=== PATIENT | female | born 1980 ===

== ENCOUNTER 2017-05-24 23:23 | Emergency (ER) | payer MEDICAID ==
[2017-05-25] MEDS ORDERED: Dextrose 5%/0.9% NS 1,000 ML IV ONE (00:25)
[2017-05-25 00:32] VITALS: BMI 26.0
[2017-05-25 01:03] LABS: BASO % 0.3 % (0.0-2.0); EOS % 0.2 % (0.0-4.0); LYMPH # 0.7 K/uL (1.0-4.3); LYMPH % 6.9 % (20.0-40.0); MEAN CELL VOLUME 90.6 fL (81.0-99.0); MEAN CORPUSCULAR HEMOGLOBIN 31.4 pg (27.0-31.0); MEAN CORPUSCULAR HGB CONC 34.6 g/dL (33.0-37.0); MEAN PLATELET VOLUME 8.6 fL (7.2-11.7); MONO # 0.2 K/uL (0.0-0.8); MONO % 2.5 % (0.0-10.0); NEUT # 8.6 K/uL (1.8-7.0); NEUT % 90.1 % (50.0-75.0); PLATELET COUNT 244 K/uL (130-400); RBC 4.14 Mil/uL (3.80-5.20); RED CELL DISTRIBUTION WIDTH 12.5 % (11.5-14.5); WHITE BLOOD COUNT 9.6 K/uL (4.8-10.8)
[2017-05-25 01:06] LABS: SQUAMOUS EPITHIAL 5 /hpf (0-5); URINE BILIRUBIN NEGATIVE (NEGATIVE); URINE BLOOD NEGATIVE (NEGATIVE); URINE CLARITY Clear (Clear); URINE COLOR Yellow (YELLOW); URINE GLUCOSE (UA) NORMAL (Normal); URINE LEUKOCYTE ESTERASE TRACE Leu/uL (Negative); URINE PROTEIN NEGATIVE (NEGATIVE); URINE UROBILINOGEN NORMAL mg/dL (0.2-1.0)
[2017-05-25] MEDS ORDERED: Potassium Ch 20mEq in D5-1/2NS 1,000 ML IV SCH (01:15)
[2017-05-25 01:32] LABS: ALB/GLOB RATIO 1.1 (1.0-2.1)
[2017-05-25 01:36] LABS: ALBUMIN 3.5 g/dL (3.5-5.0); ALT/SGPT 36 U/L (9-52); AMYLASE 86 U/L (30-110); AST/SGOT 25 U/L (14-36); BANDS 8 % (0-2); BLOOD UREA NITROGEN 10 mg/dL (7-17); CALCIUM 7.9 mg/dl (8.6-10.4); GFR AFRICAN-AMERICAN > 60; GFR NON-AFRICAN AMERICAN > 60; LIPASE 45 U/L (23-300); LYMPHOCYTE 6 % (20-40); MONOCYTE 3 % (0-10); NEUTROPHIL 81 % (50-75); PLATELET ESTIMATE NORMAL (NORMAL); REACTIVE LYMPHOCYTES 2 % (0-0); TOTAL CELLS COUNTED 100
--- NOTE | 2017-05-25 08:55 | OBDCSUM ---
Datetime: 05/25/2017 08:54 Discharged to, Provider: Home Follow up at, Provider: 2-3 Follow up in weeks, Provider: clinic Discharge Comment, Provider: [place] [facility] anthony martinez rs po hy f/u pmd n 2-3cdays Discharge Diagnosis Prov Other: gasytroenteritis 24week
--- NOTE | 2017-05-25 08:56 | OBHP ---
Datetime: 05/25/2017 08:53 Admit Comment, IP Provider: pt was seen at bed side. feels good,no vomiting. tolerated reg deit labs n plan dc home zofran deit rs po hy f/u pmd n 2-3cdays [facility] - Baseline A Provider: 130 Contraction Comments Provider: none Vital Signs Provider: Reviewed; Within Normal Limits [facility] Variability Prov Fetus A: Moderate 6-25bpm Datetime: 05/25/2017 00:28 IP Adm Impression: No Active Labor IP Chief Complaint Other: Abdominal pain; nausea, vomiting; perineal bleeding IP Admit Plan: Observation/Evaluation Pelvic Type - PN: Adequate Extremities - PN: Normal Abdomen - PN: Abnormal Back - PN: Normal Breast - PN: Normal Lungs - PN: Normal Heart - PN: Normal Thyroid - PN: Normal Neurologic - PN: Normal HEENT - PN: Normal General - PN: Normal Comments, ACOG Physical Exam: Back: no CVA tenderness. Abdomen: Obese. Gravid. Soft. (+) generalized tenderness over abdomen; no rebound tenderness Perineum: no blood noted. (+) external hemorrhoid Cervical exam: No blood on examining hand All other systems reviewed - see HPI Gestation - Est Wks by US: 24w 3d Dilatation, Provider: 0 Effacement, Provider: 0 Station, Provider: n/a Genitourinary Exam: Abnormal DTRs - PN: Not Done
[2017-05-25 13:59] VITALS: BP 96/49; PULSE 80; RESP 18; TEMP 97.1; O2SAT 97
== END 2017-05-25 09:48 | disposition home or self-care (01) ==
LOC: C.EROB 23:23
DX: O21.2 Late vomiting of pregnancy (principal); Z3A.24 24 weeks gestation of pregnancy
CPT/HCPCS: 80053; 81001; 82150; 83690; 85025; 99283; J2405; J7042

== ENCOUNTER 2018-03-30 20:50 | Emergency (ER) | payer SELFPAY ==
[2018-03-30 20:50] VITALS: BMI 26.0
[2018-03-30 21:05] VITALS: RESP 20; TEMP 98.4; O2SAT 98
--- NOTE | 2018-03-30 22:33 | C.PDOC ---
History Of Present Illness 37y/o female who is breast feeding c/o lower back pain on both sides that started last night.; pt has taken ibuprofen 3 times. last at 1130n tues. no trauma or injuryy. no heavy lifting. no fever. no abdominal pain. no bladder or bowel dysfunction. Time Seen by Provider: 03/30/18 21:01 Chief Complaint (Nursing): Back Pain Past Medical History Vital Signs: Last Vital Signs Temp 98.4 F 03/30/18 20:58 Pulse 67 03/30/18 20:58 Resp 20 03/30/18 20:58 BP 112/67 03/30/18 20:58 Pulse Ox 98 03/30/18 20:58 - Social History Hx Alcohol Use: No Hx Substance Use: No - Immunization History Hx Tetanus Toxoid Vaccination: No Hx Influenza Vaccination: No Hx Pneumococcal Vaccination: No ED Course And Treatment O2 Sat by Pulse Oximetry: 98 Medical Decision Making Medical Decision Making: pt with bilatewral lower back pain. worse with movement. txed in ed with prednisone, tyleol and toradol. choice of medications limited since pt breastfeeing and baby doesn't drink formula. pt understands/s Disposition Counseled Patient/Family Regarding: Diagnosis, Need For Followup - Disposition Referrals: [facility] [Outside] Disposition: HOME/ ROUTINE Disposition Time: 22:33 Condition: IMPROVED Additional Instructions: Warm compresses to lower back. Take medications as prescribed. Follow up in medical clinic. Reutrn to ER for worse pain, .lower extremity weakness. fever. urinating or defecating on yourself. Prescriptions: Acetaminophen [Tylenol 325mg tab] 650 mg PO Q4 #50 tab Ibuprofen [Motrin] 600 mg PO TID #30 tab predniSONE [predniSONE Tab] 2 tab PO DAILY #8 tab Instructions: Sciatica Forms: [facility] (Bahamian), General Discharge Instructions - Clinical Impression Clinical Impression: Sciatica
[2018-03-30 23:16] VITALS: BP 112/70; PULSE 86
== END 2018-03-30 23:15 | disposition home or self-care (01) ==
LOC: C.ER 20:50
DX: M54.30 Sciatica, unspecified side (principal)
CPT/HCPCS: 81025; 96372; 99283; J1885